=== PATIENT | female | born 1990 | race Caucasian/White ===

== ENCOUNTER 2017-01-30 06:31 | Emergency (ER) | payer OTHER ==
[2017-01-30 07:33] LABS: UA SPECIFIC GRAVITY 1.025 (1.005-1.035); microscopic required? YES; urine erythrocyte TRACE (NEGATIVE)
[2017-01-30 09:05] VITALS: BP 123/72
== END 2017-01-30 09:05 | disposition home or self-care (01) ==
LOC: ED 06:31
PROVIDERS: Emergency Medicine
DX: M54.5 Low back pain (principal); M47.896 Other spondylosis, lumbar region
CPT/HCPCS: J1100; J1885

== ENCOUNTER 2017-07-04 07:05 | Emergency (ER) | payer OTHER ==
[2017-07-04 08:47] VITALS: BP 115/69
== END 2017-07-04 08:47 | disposition home or self-care (01) ==
LOC: ED 07:05
DX: S43.51XA Sprain of right acromioclavicular joint, initial encounter (principal); W01.0XXA Fall on same level from slipping, tripping and stumbling without subsequent striking against object, initial encounter; Y93.89 Activity, other specified; Y99.8 Other external cause status; Y92.89 Other specified places as the place of occurrence of the external cause

== ENCOUNTER 2017-09-15 09:08 | Emergency (ER) | payer OTHER ==
[~2017-09-15] VITALS: Ht 162.6 cm; Wt 78.7 kg
[2017-09-15 10:34] LABS: BASOPHIL % 0.6 % (0-2); PLATELET COUNT 262 x10^3mcL (130-400)
[2017-09-15 10:39] LABS: CARBON DIOXIDE 26.1 mmol/L (21-32); CHLORIDE SERUM 102 mmol/L (98-107); CREATININE SERUM 0.7 mg/dL (0.6-1.0); GFR1 > 60 mL/min; GLUCOSE SERUM 88 mg/dL (74-106); POTASSIUM SERUM 3.6 mmol/L (3.5-5.1); SODIUM SERUM 135 mmol/L (136-145)
[2017-09-15 10:43] LABS: RED CELL DISTRIBUTION WIDTH 20.3 % (11.5-14.5)
[2017-09-15 10:44] LABS: ALBUMIN 3.9 g/dL (3.4-5.0); ALKALINE PHOSPHATASE 77 U/L (46-116); ALT/SGPT 29 U/L (14-59); AST/SGOT 23 U/L (15-37); BILIRUBIN TOTAL 0.59 mg/dL (0.20-1.00); LIPASE 105 IU/L (73-393)
[2017-09-15 10:59] LABS: TOTAL PROTEIN, SERUM 8.7 g/dL (6.4-8.2)
[2017-09-15 11:25] VITALS: BP 121/70
== END 2017-09-15 11:25 | disposition home or self-care (01) ==
LOC: ED 09:08
PROVIDERS: Emergency Medicine
DX: R11.10 Vomiting, unspecified (principal); R19.7 Diarrhea, unspecified; R10.10 Upper abdominal pain, unspecified
CPT/HCPCS: 36415; J0500; J2405

== ENCOUNTER 2020-10-11 12:53 | Emergency (ER) | payer OTHER, MEDICAID ==
[~2020-10-11] VITALS: Ht 162.6 cm; Wt 83.0 kg
[2020-10-11 13:06] VITALS: Ht 162.6 cm; Wt 83.0 kg
[2020-10-11 14:15] VITALS: BP 113/77
== END 2020-10-11 14:03 | disposition home or self-care (01) ==
LOC: ED 12:53
DX: S16.1XXA Strain of muscle, fascia and tendon at neck level, initial encounter (principal); S20.212A Contusion of left front wall of thorax, initial encounter; S50.12XA Contusion of left forearm, initial encounter; R51.9 Headache, unspecified; V49.49XA Driver injured in collision with other motor vehicles in traffic accident, initial encounter; Y93.I9 Activity, other involving external motion; Y92.488 Other paved roadways as the place of occurrence of the external cause; Y99.8 Other external cause status

== ENCOUNTER 2020-10-15 16:45 | Emergency (ER) | payer OTHER, MEDICAID ==
[~2020-10-15] VITALS: Ht 162.6 cm; Wt 78.9 kg
[2020-10-15 16:56] VITALS: BP 131/90; Ht 162.6 cm; Wt 78.9 kg
== END 2020-10-15 18:53 | disposition home or self-care (01) ==
LOC: ED 16:45
DX: S20.212A Contusion of left front wall of thorax, initial encounter (principal); V49.49XA Driver injured in collision with other motor vehicles in traffic accident, initial encounter; Y93.I9 Activity, other involving external motion; Y92.413 State road as the place of occurrence of the external cause; Y99.8 Other external cause status